=== PATIENT | female | born 1945 | race Two or more races ===

== ENCOUNTER 2020-04-07 07:30 | Inpatient (IN) | payer OTHER ==
[~2020-04-07] VITALS: Ht 157.5 cm; Wt 90.7 kg
[2020-04-07] MEDS ORDERED: AVALIDE 300-121 EACH PO (08:26)
[2020-04-07] MEDS ORDERED: NORVASC2.5 M1 PO (08:26)
[2020-04-07] MEDS ORDERED: CARDURA1 MG PO (08:27)
[2020-04-07] MEDS ORDERED: SYNTHROID175 MCG PO (08:27)
[2020-04-07] MEDS ORDERED: METHOTREXATE 1 G1 GM IJ (08:28)
[2020-04-13] MEDS ORDERED: DESONIDE15 GM (10:23)
[2020-04-13] MEDS ORDERED: LEFLUNOMIDE20 MG (10:23)
[2020-04-13] MEDS ORDERED: AMLODIPINE BESYL5 MG (10:24)
[2020-04-13] MEDS ORDERED: SYNTHROID75 MCG (10:24)
[2020-04-13] MEDS ORDERED: HYDROCHLOROTH12.5 MG (10:24)
[2020-04-13] MEDS ORDERED: DICLOFENAC POTA50 MG (10:24)
[2020-04-15] MEDS ORDERED: PERCOCET 5-3251 EACH PO (15:47)
[2020-04-15] MEDS ORDERED: DUI500 PO (15:47)
[2020-04-15] MEDS ORDERED: ELIQUIS2.5 MG PO (15:47)
== END 2020-04-16 16:42 | DRG 470 ==
LOC: O/R 04-13 05:45 → SURG 04-13 05:45 → SURH 04-13 07:30 → SURG 04-13 16:36
PROVIDERS: ADMIT Orthopaedic Surgery; ATTEND Orthopaedic Surgery
PROC: 0QRG0JZ Replacement of Right Tibia with Synthetic Substitute, Open Approach (ICD-10-PCS; 2020-04-13)
PROC: 0SRC0J9 Replacement of Right Knee Joint with Synthetic Substitute, Cemented, Open Approach (ICD-10-PCS; principal; 2020-04-13 12:30)
DX: M17.11 Unilateral primary osteoarthritis, right knee (principal); M81.0 Age-related osteoporosis without current pathological fracture; M22.11 Recurrent subluxation of patella, right knee

== ENCOUNTER 2024-03-21 07:00 | Inpatient (IN) | payer OTHER ==
[~2024-03-21] VITALS: Ht 157.5 cm; Wt 90.7 kg
[~2024-03-21 07:00] MED LIST: AMLODIPINE BESYL5 MG; AVALIDE 300-121 EACH PO; CARDURA1 MG PO; DESONIDE15 GM; DICLOFENAC POTA50 MG; DUI500 PO; ELIQUIS2.5 MG PO; HYDROCHLOROTH12.5 MG; LEFLUNOMIDE20 MG; METHOTREXATE 1 G1 GM IJ; NORVASC2.5 M1 PO; PERCOCET 5-3251 EACH PO; SYNTHROID175 MCG PO; SYNTHROID75 MCG
[2024-03-21] MEDS ORDERED: NORVASC5 MG PO (07:53)
[2024-03-21 07:56] LABS: HEMATOCRIT 34.8 % (36.0-45.00); HEMOGLOBIN 11.4 g/dL (12.0-15.00); MEAN CELL VOLUME 84.8 fL (80.00-100.00); MEAN CORPUSCULAR HEMOGLOBIN 27.7 pg (27.00-32.0); MEAN CORPUSCULAR HGB CONC 32.7 g/dl (32.0-36.0); PLATELET COUNT 243 K/uL (150-450); RED CELL DISTRIBUTION WIDTH 15.3 % (11.5-14.5)
[2024-03-21] MEDS ORDERED: TRELEGY ELLIPT1 EAC1 IH (08:04)
[2024-03-21] MEDS ORDERED: METOTREXATE (08:04)
[2024-03-21 08:05] VITALS: BP 161/52
[2024-03-21 08:17] LABS: INR 0.98; PARTIAL THROMBOPLASTIN TIME 25.2 SECONDS (22.0-34.0); PROTHROMBIN TIME 10.7 SECONDS (9.0-11.5)
[2024-03-21 08:39] LABS: ALBUMIN 3.1 gm/dL (3.4-5.0); BILIRUBIN TOTAL 1.13 mg/dL (0.3-1.2); CALCIUM 9.2 mg/dL (8.5-10.1); CREATININE SERUM 0.54 mg/dL (0.55-1.02); GFR 109.76; GLOBULINA 3.7 G/DL (2.4-3.5); POTASSIUM 3.85 mEq/L (3.5-5.1); TOTAL PROTEIN 6.8 gm/dL (6.4-8.2)
[2024-03-21 08:40] LABS: URINE APPEARANCE Clear; URINE BILIRRUBIN Negative (NEGATIVE); URINE BLOOD Negative; URINE COLOR Yellow; URINE GLUCOSE Negative (NEGATIVE); URINE KETONE Negative (NEGATIVE); URINE LEUKOCYTE Negative; URINE NITRATE Negative; URINE PROTEIN Negative (NEGATIVE); URINE UROBILINOGEN 0.2 E.U./dl
[2024-03-21 08:44] LABS: URINE BACTERIA 14.6 uL (0.0-1933)
[2024-03-21 08:50] LABS: URINE EPITHELIAL CELLS 0.6 uL (0.0-38.8); URINE RBC 0.1 uL (0.0-20.8); URINE WBC 0.6 uL (0.0-23.2)
[2024-03-21 09:35] LABS: RH POSITIVE
[2024-04-01] MEDS ORDERED: KETOROLAC TROMETHAMINE 60 MG VIAL IM ONE (09:25)
[2024-04-01] MEDS ORDERED: CEFAZOLIN SODIUM 1,000 MG VIAL ONE (09:25)
[2024-04-01] MEDS ORDERED: TRANEXAMIC ACID 100MG/1ML (1000MG) AMPUL IV ONE ×2 (09:26→10:30)
[2024-04-01] MEDS ORDERED: POVIDONE-IODINE 118 ML BOTT TOP ONE (09:27)
[2024-04-01] MEDS ORDERED: MORPHINE SULFATE 4 MG/ML CARTRIDGE IV ONE (10:30)
[2024-04-01] MEDS ORDERED: ONDANSETRON HCL 2 MG/ML VIAL IV PRN (11:30)
[2024-04-01] MEDS ORDERED: OxyCODONE HCL 5 MG TABLET (ROXICODONE) PO PRN (11:30)
[2024-04-01] MEDS ORDERED: MORPHINE SULFATE 4 MG/ML CARTRIDGE IV PRN (11:30)
[2024-04-01] MEDS ORDERED: SODIUM CHLORIDE 0.45 % 1,000 ML IV SCH (11:30)
[2024-04-01] MEDS ORDERED: ACETAMINOPHEN 500 MG GEL..CAP PO SCH (12:00)
[2024-04-01] MEDS ORDERED: ENALAPRILAT DIHYDRATE 1.25 MG/ML VIAL IV PRN (14:45)
[2024-04-01 16:00] VITALS: BP 122/65; O2SAT 96
[2024-04-01] MEDS ORDERED: GABAPENTIN 300 MG CAPSULE PO SCH (17:00)
[2024-04-01] MEDS ORDERED: CEFAZOLIN SODIUM 1,000 MG VIAL IV SCH (17:00)
[2024-04-02 00:54] VITALS: BP 139/61
[2024-04-02 06:50] LABS: HEMATOCRIT 33.7 % (36.0-45.00); HEMOGLOBIN 11.2 g/dL (12.0-15.00); MEAN CELL VOLUME 83.6 fL (80.00-100.00); MEAN CORPUSCULAR HEMOGLOBIN 27.8 pg (27.00-32.0); MEAN CORPUSCULAR HGB CONC 33.2 g/dl (32.0-36.0); PLATELET COUNT 239 K/uL (150-450); RED BLOOD COUNT 4.03 M/uL (4.00-6.00); RED CELL DISTRIBUTION WIDTH 16.5 % (11.5-14.5)
[2024-04-02 08:00] VITALS: BP 112/50; O2SAT 99
[2024-04-02] MEDS ORDERED: ELIQUIS2.5 MG PO (08:11)
[2024-04-02] MEDS ORDERED: DUI500 PO (08:11)
[2024-04-02] MEDS ORDERED: PERCOCET 5-3251 EACH PO (08:11)
[2024-04-02] MEDS ORDERED: IRBESARTAN 300 MG TABLET PO SCH (09:00)
[2024-04-02] MEDS ORDERED: HYDROCHLOROTHIAZIDE 12.5 MG CAPSULE PO SCH (09:00)
[2024-04-02] MEDS ORDERED: APIXABAN 2.5 MG TABLET PO SCH (09:00)
[2024-04-02] MEDS ORDERED: SENNOSIDES 1 TAB TABLET PO SCH (09:00)
[2024-04-02] MEDS ORDERED: AMLODIPINE BESYLATE 5 MG TABLET PO SCH (09:00)
[2024-04-02] MEDS ORDERED: DOXAZOSIN MESYLATE 2 MG TABLET PO SCH (09:00)
[2024-04-02 19:52] VITALS: BP 159/66; O2SAT 97
[2024-04-03 02:00] VITALS: BP 148/75; O2SAT 95
[2024-04-03 06:58] LABS: HEMATOCRIT 32.3 % (36.0-45.00); HEMOGLOBIN 10.8 g/dL (12.0-15.00); MEAN CELL VOLUME 83.2 fL (80.00-100.00); MEAN CORPUSCULAR HEMOGLOBIN 27.9 pg (27.00-32.0); MEAN CORPUSCULAR HGB CONC 33.5 g/dl (32.0-36.0); PLATELET COUNT 230 K/uL (150-450); RED BLOOD COUNT 3.88 M/uL (4.00-6.00); RED CELL DISTRIBUTION WIDTH 17.1 % (11.5-14.5)
[2024-04-03 08:00] VITALS: BP 180/89; O2SAT 97
[2024-04-03] MEDS ORDERED: IRON FUM,PS/FOLIC ACID/VITC/B3 1 CAP CAPSULE PO SCH (09:00)
== END 2024-04-03 21:42 | DRG 470 ==
LOC: O/R 04-01 06:12 → SURG 04-01 07:00
PROVIDERS: ADMIT Orthopaedic Surgery; ATTEND Orthopaedic Surgery
PROC: 0MNP0ZZ Release Left Knee Bursa and Ligament, Open Approach (ICD-10-PCS; 2024-04-01)
PROC: 0SRD0J9 Replacement of Left Knee Joint with Synthetic Substitute, Cemented, Open Approach (ICD-10-PCS; principal; 2024-04-01 07:00)
DX: M17.12 Unilateral primary osteoarthritis, left knee (principal); M22.12 Recurrent subluxation of patella, left knee; I10 Essential (primary) hypertension